=== PATIENT | female | born 1980 | race Caucasian/White ===

== ENCOUNTER 2017-09-10 15:15 | Emergency (ER) | payer OTHER ==
[~2017-09-10] VITALS: Ht 177.8 cm; Wt 93.6 kg
[2017-09-10 15:23] VITALS: BP 101/69
[2017-09-10] MEDS ORDERED: ACETAMINOPHEN 325 MG TAB PO ONE (16:05)
--- NOTE | 2017-09-10 16:21 | NUR ---
PATIENT IS A 37 YO FEMALE BIB SELF FOR RIGHT WRIST PAIN , AWAKE AND ALERT NO DEFORMITY NO ACUTE SWELLING, PA AT BEDSIDE, X RAY ORDERED.
--- NOTE | 2017-09-10 17:21 | NUR ---
Patient discharged with v/s stable. Written and verbal after care instructions given and explained. Patient alert, oriented and verbalized understanding of instructions. Ambulatory with steady gait. All questions addressed prior to discharge. ID band removed. Patient advised to follow up with PMD. Rx of TRAMADOL/IBUPROFEN given. Patient educated on indication of medication including possible reaction and side effects. Opportunity to ask questions provided and answered. WAITING FOR CD IN [facility]
[2017-09-10 17:23] VITALS: BP 133/76
== END 2017-09-10 17:21 | disposition home or self-care (01) ==
LOC: MED 15:15
DX: S66.911A Strain of unspecified muscle, fascia and tendon at wrist and hand level, right hand, initial encounter (principal); Z88.8 Allergy status to other drugs, medicaments and biological substances; W10.9XXA Fall (on) (from) unspecified stairs and steps, initial encounter; Y93.89 Activity, other specified; Y92.89 Other specified places as the place of occurrence of the external cause; Y99.8 Other external cause status
CPT/HCPCS: 73110; 99284

== ENCOUNTER 2022-05-02 12:27 | Emergency (ER) | payer OTHER ==
[~2022-05-02] VITALS: Ht 177.8 cm; Wt 98.1 kg
[2022-05-02 12:38] VITALS: BP 135/86
--- NOTE | 2022-05-02 14:03 | NUR ---
PATIENT AMBULATED TO CHAIR B
--- NOTE | 2022-05-02 14:21 | NUR ---
Blood handed to CPT Liz at ER bedside
--- NOTE | 2022-05-02 14:22 | NUR ---
Pt to RAD
[2022-05-02] MEDS: NACL 0.9% 1,000 ML IV ONE (14:25)
[2022-05-02 14:34] LABS: BASOPHILS % (AUTO) 0.6 % (0.0-2.0); EOSINOPHILS # (AUTO) 0.1 K/uL (0-0.4); EOSINOPHILS % (AUTO) 1.1 % (0.0-4.0); HEMATOCRIT 38.7 % (36-48); HEMOGLOBIN 12.8 g/dL (12.0-16.0); LYMPHOCYTES # (AUTO) 1.8 K/uL (2.5-16.5); LYMPHOCYTES % (AUTO) 23.8 % (20.5-51.1); MEAN CORPUSCULAR HEMOGLOBIN 27 pg (27-31); MEAN CORPUSCULAR HGB CONC 33 g/dL (33-37); MEAN CORPUSCULAR VOLUME 82.4 fL (80-94); MONOCYTES # (AUTO) 0.4 K/uL (0.8-1.0); MONOCYTES % (AUTO) 5.6 % (1.7-9.3); NEUTROPHILS # (AUTO) 5.2 K/uL (1.8-7.7); NEUTROPHILS % (AUTO) 68.9 % (42.2-75.2); PLATELET COUNT (AUTO) 359 K/uL (140-450); RED CELL DISTRIBUTION WIDTH 14.9 % (11.6-13.7); WHITE BLOOD COUNT (AUTO) 7.5 K/uL (4.8-10.8)
[2022-05-02 15:08] LABS: PROTHROMBIN TIME 9.9 secs (10.8-13.4)
[2022-05-02 15:12] LABS: ALBUMIN 3.8 g/dL (3.4-5.0); ANION GAP 9.5 (8-16); ASPARTATE AMINOTRANSFERASE 11 U/L (15-37); CARBON DIOXIDE 29.3 mmol/L (21-32); CHLORIDE 106 mmol/L (98-107); CREATININE 0.6 mg/dL (0.6-1.3); GFR ARICAN-AMERICAN 140 mL/min (>90); GLUCOSE 97 mg/dL (74-106); POTASSIUM 3.8 mmol/L (3.5-5.1); SODIUM SERUM 141 mmol/L (136-145); TOTAL BILIRUBIN 0.3 mg/dL (0.0-1.0); UREA NITROGEN, BLOOD 11 mg/dL (7-18)
[2022-05-02 17:14] VITALS: BP 126/88
--- NOTE | 2022-05-02 17:14 | NUR ---
IV removed, catheter intact and site benign. Applied folded 4x4 gauze and tape to stop bleeding.
--- NOTE | 2022-05-02 17:14 | NUR ---
Patient discharged with v/s stable. Written and verbal after care instructions given and explained. Patient verbalized understanding. Ambulatory with steady gait. All questions addressed prior to discharge. Advised to follow up with PMD. Copy of CT, Xray, and blood work handed to patient.
== END 2022-05-02 17:14 | disposition home or self-care (01) ==
LOC: MED 12:27
DX: R07.89 Other chest pain (principal); R20.2 Paresthesia of skin; Z88.5 Allergy status to narcotic agent; Z98.890 Other specified postprocedural states
CPT/HCPCS: 36415; 71045; 71275; 80053; 81002; 81025; 84484; 85025; 85379; 85610; 85730; 93005; 96360; 99285; J7030; Q9967